=== PATIENT | male | born 1990 | race African-American/Black ===

== ENCOUNTER 2019-03-12 23:01 | Emergency (ER) | payer OTHER ==
[~2019-03-12] VITALS: Ht 172.7 cm; Wt 65.8 kg
[2019-03-12] MEDS ORDERED: NORCO 5-325 TA1 EACH PO (23:22)
[2019-03-12 23:41] VITALS: BP 129/78
== END 2019-03-12 23:43 | disposition home or self-care (01) ==
LOC: ER 23:01
DX: S52.502A Unspecified fracture of the lower end of left radius, initial encounter for closed fracture (principal); S52.612A Displaced fracture of left ulna styloid process, initial encounter for closed fracture; W18.39XA Other fall on same level, initial encounter; Y93.66 Activity, soccer; Y92.89 Other specified places as the place of occurrence of the external cause; Y99.8 Other external cause status

== ENCOUNTER → 2020-08-28 | Outpatient (CLI) | payer OTHER ==
[~2020-08-28] MED LIST: NORCO 5-325 TA1 EACH PO
[2020-08-28 13:10] VITALS: BP 102/43
--- NOTE | 2020-08-28 15:50 | NUR ---
IN FOR IV HYDRATION FOR DEHYDRATION AND WEAKNESS. 2L NS GIVEN OVER 2 HOURS AND TOLERATED WELL. ADMISSION HISTORY AND ASSESSMENT COMPLETED. PATIENT TAKES NO MEDICATIONS. REMOVED IV AND DISMISSED IN GOOD CONDITION.
== END ==
LOC: OPONC 12:35
PROVIDERS: ATTEND Family Medicine
DX: E86.0 Dehydration (principal); R53.1 Weakness